=== PATIENT | female | born 1965 | race Caucasian/White ===

== ENCOUNTER 2021-07-24 05:06 | Day surgery (SDC) | payer BC ==
[2021-07-24 06:46] VITALS: BMI 25.1
[2021-07-24] MEDS ORDERED: BUPIVACAINE HCL/PF 0.5% (5MG/ML) 10 ML VIAL ONE (07:12)
[2021-07-24] MEDS ORDERED: PROPOFOL 20 ML ONE (08:04)
[2021-07-24] MEDS ORDERED: SUCCINYLCHOLINE CHLORIDE 200 MG/10 ML SYRINGE ONE (08:04)
[2021-07-24] MEDS ORDERED: ROCURONIUM BROMIDE 50 MG/5 ML SYRINGE ONE (08:04)
[2021-07-24] MEDS ORDERED: MIDAZOLAM HCL 2 MG/2 ML SINGLE DOSE VIAL ONE (08:04)
[2021-07-24] MEDS ORDERED: ceFAZolin SODIUM 1 GM VIAL IVPB ONE (08:41)
[2021-07-24] MEDS ORDERED: ceFAZolin SODIUM 1 GM VIAL ONE (08:41)
[2021-07-24] MEDS ORDERED: ALBUTEROL SO4 HFA INHALER IH ONE (08:55)
[2021-07-24] MEDS ORDERED: DEXAMETHASONE SOD PHOSPHATE 4 MG/1 ML VIAL ONE (09:40)
[2021-07-24] MEDS ORDERED: METHYLENE BLUE 50 MG/10 ML AMPUL ONE (10:11)
[2021-07-24] MEDS ORDERED: NEOSTIGMINE METHYLSULFATE 0.5 MG/ML - 10 ML MDV ONE (10:25)
[2021-07-24] MEDS ORDERED: GLYCOPYRROLATE 0.2 MG/1 ML VIAL ONE (10:25)
[2021-07-24] MEDS ORDERED: ACETAMINOPHEN 325 MG TABLET (FP) PO PRN (10:38)
[2021-07-24] MEDS ORDERED: oxyCODONE HCL 5 MG TABLET PO PRN (10:38)
[2021-07-24] MEDS ORDERED: IBUPROFEN 600 MG TABLET (FP) PO PRN (10:38)
[2021-07-24] MEDS ORDERED: ONDANSETRON 4 MG/2 ML VIAL IVPUSH PRN (10:57)
[2021-07-24] MEDS ORDERED: ALBUTEROL SO4 0.083% IH SOL 2.5 MG/3 ML VIAL.NEB. NEB PRN (10:58)
[2021-07-24] MEDS ORDERED: LACTATED RINGERS SOLUTION 1,000 ML IV SCH (11:00)
[2021-07-24] MEDS ORDERED: ACETAMINOPHEN 1000 MG/100 ML VIAL IVPB ONE ×2 (13:57→14:05)
[2021-07-24] MEDS ORDERED: KETOROLAC TROMETHAMINE 30 MG/1 ML VIAL IVPUSH ONE ×2 (13:57→14:11)
[2021-07-24] MEDS ORDERED: IBUPROFEN 800 MG/8 ML IJ IVPB PRN (16:59)
[2021-07-25 05:50] LABS: HEMATOCRIT 34.7 % (32.4-45.2); HEMOGLOBIN 12.2 GM/dL (10.7-15.3); MCH 33.3 pg (25.7-33.7); MCHC 35.1 g/dl (32.0-36.0); MEAN CELL VOLUME 94.9 fl (80-96); MEAN PLT VOLUME 7.8 fl (7.5-11.1); PLATELET COUNT 248 10^3/uL (134-434); RBC 3.65 M/mm3 (3.60-5.2); RDW 14.4 % (11.6-15.6); WHITE BLOOD COUNT 10.9 K/mm3 (4.0-10.0)
[2021-07-25 09:19] VITALS: BP 102/69; PULSE 79; TEMP 98.2
== END 2021-07-25 12:00 | disposition home or self-care (01) ==
LOC: JASUSAT 05:06 → J3W 15:07 → JASUSAT 07-25 12:00
PROVIDERS: ATTEND Obstetrics & Gynecology
PROC: 0UT2FZZ Resection of Bilateral Ovaries, Via Natural or Artificial Opening With Percutaneous Endoscopic Assistance (ICD-10-PCS; 2021-07-24)
PROC: 0UT7FZZ Resection of Bilateral Fallopian Tubes, Via Natural or Artificial Opening With Percutaneous Endoscopic Assistance (ICD-10-PCS; 2021-07-24)
PROC: 0UT9FZZ Resection of Uterus, Via Natural or Artificial Opening With Percutaneous Endoscopic Assistance (ICD-10-PCS; principal; 2021-07-24 08:00)
DX: N95.0 Postmenopausal bleeding (principal); D25.9 Leiomyoma of uterus, unspecified; N72 Inflammatory disease of cervix uteri; N83.292 Other ovarian cyst, left side; N83.291 Other ovarian cyst, right side; N83.8 Other noninflammatory disorders of ovary, fallopian tube and broad ligament
CPT/HCPCS: 36415; 81025; 85027; 86850; 86900; 86901; 88307-TC; 94010; 94760; J0131; Q9968

== ENCOUNTER 2022-10-31 09:43 | Emergency (ER) | payer BC ==
[2022-10-31 09:58] VITALS: BP 122/81; PULSE 89; RESP 16; TEMP 98.2; BMI 29.2
[2022-10-31 12:07] LABS: BASO % 0.5 % (0-2.0); EOS % 2.2 % (0-4.5); HEMATOCRIT 45.5 % (32.4-45.2); HEMOGLOBIN 15.2 GM/dL (10.7-15.3); LYMPH % 41.2 % (8-40); MCH 30.9 pg (25.7-33.7); MCHC 33.4 g/dl (32.0-36.0); MEAN CELL VOLUME 92.6 fl (80-96); MEAN PLT VOLUME 8.2 fl (7.5-11.1); MONO % 7.8 % (3.8-10.2); NEUT % 48.3 % (42.8-82.8); PLATELET COUNT 292 10^3/uL (134-434); RBC 4.91 M/mm3 (3.60-5.2); RDW 13.3 % (11.6-15.6); WHITE BLOOD COUNT 6.2 K/mm3 (4.0-10.0)
[2022-10-31 12:17] LABS: CALCIUM 9.7 mg/dL (8.5-10.1)
[2022-10-31 12:18] LABS: BLOOD UREA NITROGEN 14.8 mg/dL (7-18)
[2022-10-31 12:21] LABS: CREATININE 0.9 mg/dL (0.55-1.3)
[2022-10-31 12:23] LABS: BILIRUBIN,TOTAL 0.6 mg/dL (0.2-1); TOT PROT 7.5 g/dl (6.4-8.2)
[2022-10-31] MEDS ORDERED: ACETAMINOPHEN 1000 MG/100 ML BAG IVPB ONE (13:20)
[2022-10-31] MEDS ORDERED: METOCLOPRAMIDE HCL INJECTION 10 MG/2 ML VIAL IVPUSH ONE (13:22)
[2022-10-31] MEDS ORDERED: LIDOCAINE 5% TOPICAL PATCH TP ONE (13:22)
[2022-10-31] MEDS ORDERED: SODIUM CHLORIDE 0.9% 500 ML INFUS.BAG IV ONE (13:23)
[2022-10-31] MEDS ORDERED: METOCLOPRAMIDE HCL INJECTION 10 MG/2 ML VIAL ONE (13:24)
[2022-10-31] MEDS ORDERED: ACETAMINOPHEN INJECTION 100 ML IVPB ONE (13:24)
[2022-10-31] MEDS ORDERED: diazePAM 5 MG TABLET PO ONE (15:11)
[2022-10-31] MEDS ORDERED: LIDOCAINE 5% TOPICAL PATCH ONE (15:12)
[2022-10-31] MEDS ORDERED: diazePAM 5 MG TABLET ONE (15:12)
[2022-10-31] MEDS ORDERED: LIDOCAINE PATCH REMOVAL MC ONE (22:00)
== END 2022-10-31 16:31 | disposition home or self-care (01) ==
LOC: JER 09:43 → JERFT 09:43
PROC: 3E033GC Introduction of Other Therapeutic Substance into Peripheral Vein, Percutaneous Approach (ICD-10-PCS; principal; 2022-10-31)
DX: M54.2 Cervicalgia (principal)
CPT/HCPCS: 36415; 70450-TC; 71046-TC-FY; 80053; 84484; 85025; 93005; 93010; 99285-25

== ENCOUNTER 2024-04-24 17:54 | Emergency (ER) | payer BC ==
[2024-04-24 18:05] VITALS: RESP 18; TEMP 98.6; BMI 26.2
[2024-04-24] MEDS ORDERED: TETRACAINE 0.5% OPHTH SOLN 2 ML BOTTLE ONE (19:08)
[2024-04-24 19:42] VITALS: BP 123/80; PULSE 75
[2024-04-24] MEDS: ONDANSETRON *ODT* 4 MG TABLET SL ONE (19:45)
[2024-04-24] MEDS: TETRACAINE 0.5% HCL 0.6ML DROPPER.BOTTLE OD ONE (20:05)
[2024-04-24] MEDS ORDERED: ACETAMINOPHEN INJECTION 100 ML IVPB ONE (20:07)
[2024-04-24] MEDS ORDERED: METOCLOPRAMIDE HCL INJECTION 10 MG/2 ML VIAL ONE (20:07)
[2024-04-24 20:15] LABS: BASO % 0.5 % (0-2.0); EOS % 2.6 % (0-4.5); LYMPH % 36.9 % (8-40); MCH 31.8 pg (25.7-33.7); MCHC 34.9 g/dl (32.0-36.0); MEAN CELL VOLUME 91.2 fl (80-96); MEAN PLT VOLUME 7.8 fl (7.5-11.1); MONO % 7.3 % (3.8-10.2); NEUT % 52.7 % (42.8-82.8); PLATELET COUNT 283 10^3/uL (134-434); RBC 4.72 M/mm3 (3.60-5.2); RDW 13.3 % (11.6-15.6); WHITE BLOOD COUNT 8.2 K/mm3 (4.0-10.0)
[2024-04-24] MEDS: SODIUM CHLORIDE 1,000 ML IV STA (20:15)
[2024-04-24] MEDS: ACETAMINOPHEN 1000 MG/100 ML BAG IVPB ONE (20:15)
[2024-04-24] MEDS: METOCLOPRAMIDE HCL INJECTION 10 MG/2 ML VIAL IVPUSH ONE (20:15)
[2024-04-24 20:39] LABS: POTASSIUM 3.6 mmol/L (3.5-5.1)
[2024-04-24 20:41] LABS: CALCIUM 9.9 mg/dL (8.5-10.1)
[2024-04-24 20:42] LABS: ALBUMIN 4.3 g/dl (3.4-5.0); BLOOD UREA NITROGEN 15.8 mg/dL (7-18)
[2024-04-24 20:45] LABS: CREATININE 0.9 mg/dL (0.55-1.3)
[2024-04-24 20:46] LABS: BILIRUBIN,TOTAL 0.5 mg/dL (0.2-1); TOT PROT 7.8 g/dl (6.4-8.2)
== END 2024-04-24 21:42 | disposition home or self-care (01) ==
LOC: JER 17:54
PROC: 3E033NZ Introduction of Analgesics, Hypnotics, Sedatives into Peripheral Vein, Percutaneous Approach (ICD-10-PCS; principal; 2024-04-24)
PROC: 3E033GC Introduction of Other Therapeutic Substance into Peripheral Vein, Percutaneous Approach (ICD-10-PCS; 2024-04-24)
PROC: 3E0337Z Introduction of Electrolytic and Water Balance Substance into Peripheral Vein, Percutaneous Approach (ICD-10-PCS; 2024-04-24)
DX: G44.209 Tension-type headache, unspecified, not intractable (principal); H53.8 Other visual disturbances; R20.2 Paresthesia of skin; R11.0 Nausea; R63.0 Anorexia
CPT/HCPCS: 36415; 80053; 85025; 99284-25; J0131